=== PATIENT | female | born 1965 | race Caucasian/White ===

== ENCOUNTER 2016-11-25 11:09 | Emergency (ER) | payer OTHER ==
[2016-11-25 12:29] LABS: HEMOGLOBIN 12.8 gm/dl (12.3-15.3); RED BLOOD COUNT 4.4 M/UL (4.00-5.10)
== END 2016-11-25 18:29 | disposition home or self-care (01) ==
LOC: ER1 11:09
PROVIDERS: Emergency Medicine
DX: S80.211A Abrasion, right knee, initial encounter (principal); S90.512A Abrasion, left ankle, initial encounter; R07.89 Other chest pain; L08.9 Local infection of the skin and subcutaneous tissue, unspecified; R60.0 Localized edema; E11.9 Type 2 diabetes mellitus without complications; E78.5 Hyperlipidemia, unspecified; Z95.1 Presence of aortocoronary bypass graft; Z88.8 Allergy status to other drugs, medicaments and biological substances; Z95.5 Presence of coronary angioplasty implant and graft
CPT/HCPCS: 36415; 71010; 73502; 73564; 73610; 80053; 82550; 82553; 82962; 83874; 83880; 84484; 85025; 85610; 85730; 93005; 93971; 99285; Q0177